=== PATIENT | male | born 1990 | race Caucasian/White ===

== ENCOUNTER 2021-11-07 05:04 | Emergency (ER) | payer OTHER ==
[2021-11-07 06:52] LABS: HEMOGLOBIN 15.4 gm/dl (14.0-17.5); RED BLOOD COUNT 5.17 M/UL (4.20-5.50); WHITE BLOOD COUNT 6.4 K/UL (4.5-11.0)
[2021-11-07 07:09] LABS: BUN/CREATININE RATIO 16 (0-10)
[2021-11-07] MEDS ORDERED: ZOFRAN 4 MG TAB4 MG PO (08:25)
== END 2021-11-07 08:32 | disposition home or self-care (01) ==
LOC: ER1 05:04
PROVIDERS: Nurse Practitioner
DX: K76.9 Liver disease, unspecified (principal); R19.7 Diarrhea, unspecified; F17.210 Nicotine dependence, cigarettes, uncomplicated
CPT/HCPCS: 80053; 81001; 83605; 83690; 85025; 96361; 96374; 99284; J2405; Q9967

== ENCOUNTER 2021-11-25 21:27 | Emergency (ER) | payer OTHER ==
[~2021-11-25 21:27] MED LIST: ZOFRAN 4 MG TAB4 MG PO
[2021-11-25] MEDS ORDERED: AMOX TR-K CLV1 EAC4 PO (21:45)
== END 2021-11-25 22:26 | disposition home or self-care (01) ==
LOC: ER1 21:27
DX: K02.9 Dental caries, unspecified (principal); F17.200 Nicotine dependence, unspecified, uncomplicated
CPT/HCPCS: 96372; 99282; J1885